=== PATIENT | male | born 1945 | race Asian ===

== ENCOUNTER 2017-10-31 08:50 | Emergency (ER) | payer MEDICARE, MEDICAID ==
[~2017-10-31] VITALS: Ht 167.6 cm; Wt 68.2 kg
[~2017-10-31 08:50] MED LIST: ASPI-1182 PO; FISH1CAP22 PO; ISOS30TA PO; LEVO50TA4 PO; MULT1TAB70 PO; SIMV20TA6 PO
[2017-10-31 12:14] VITALS: BP 117/71
== END 2017-10-31 12:15 | disposition home or self-care (01) ==
LOC: EMS 08:52
DX: R03.0 Elevated blood-pressure reading, without diagnosis of hypertension (principal); R42 Dizziness and giddiness; E03.9 Hypothyroidism, unspecified; Z79.82 Long term (current) use of aspirin
CPT/HCPCS: 99283